=== PATIENT | male | born 1930 | race African-American/Black ===

== ENCOUNTER 2018-06-11 08:50 | Emergency (ER) | payer MEDICARE ==
--- NOTE | 2018-06-11 09:26 | CT ---
CT head without contrast: Multiple axial tomograms obtained through the head without IV enhancement. INDICATIONS: Trauma COMPARISON: None FINDINGS: There is moderate cortical atrophy. Moderately severe chronic ischemic white matter change. No evidence of intracranial mass, hemorrhage, edema, or infarct. Visualized sinuses and mastoids appear clear. Bony calvarium appears unremarkable. IMPRESSION: No acute finding
--- NOTE | 2018-06-11 09:40 | RAD ---
EXAM: Right elbow: 4 views INDICATIONS: Trauma COMPARISON: None. FINDINGS: There is a mildly displaced fracture of the distal humerus through the condyles. Distal fra gment shows anterior displacement. There is associated joint effusion. IMPRESSION: Displaced fracture distal humerus with associated joint effusion
== END 2018-06-11 10:24 | disposition home or self-care (01) ==
LOC: ERS 08:50
DX: S42.411A Displaced simple supracondylar fracture without intercondylar fracture of right humerus, initial encounter for closed fracture (principal); G30.9 Alzheimer's disease, unspecified; E78.5 Hyperlipidemia, unspecified; I11.0 Hypertensive heart disease with heart failure; I50.9 Heart failure, unspecified; W19.XXXA Unspecified fall, initial encounter
CPT/HCPCS: 24530; 70460

== ENCOUNTER 2018-06-19 18:04 | Emergency (ER) | payer MEDICARE ==
--- NOTE | 2018-06-19 19:34 | RAD ---
XR Elbow Rt 4 View STANDARD History: [Swelling.] Comparison: Radiograph June 11, 2018 Findings: Similar appearance of the transcondylar fracture. Large joint effusion. There is displaceme nt of the medial epicondyle medially. Impression: Similar appearance of the transcondylar fracture distal humerus.
== END 2018-06-19 20:26 | disposition home or self-care (01) ==
LOC: ERS 18:04
DX: M79.89 Other specified soft tissue disorders (principal); I11.0 Hypertensive heart disease with heart failure; I50.9 Heart failure, unspecified; E78.5 Hyperlipidemia, unspecified; Z79.899 Other long term (current) drug therapy; Z79.891 Long term (current) use of opiate analgesic; Z79.82 Long term (current) use of aspirin

== ENCOUNTER 2019-01-05 09:00 | Inpatient (IN) | payer MEDICARE ==
--- NOTE | 2019-01-05 09:57 | CT ---
CT BRAIN NONCONTRAST: DATE: 01/05/2019 HISTORY: 88-year-old male with altered mental status FINDINGS: There is no evidence of acute intra-axial or extra-axial hemorrhage. There is no midline shift or any other mass effect. There is no extra-axial fluid collection. There is no evidence of obstructive hydrocephalus. Calvarium is intact. There is diffuse brain parenchymal volume loss. There are low att enuation areas in the white matter. These are nonspecific, but in a patient of this age, they are probably chronic ischemic white matter changes due to microvascular atherosclerosis. IMPRESSION: 1) No acute intracranial findings. 2) involutional changes and chronic ischemic white matter changes.
--- NOTE | 2019-01-05 10:05 | RAD ---
PORTABLE CHEST 1 VIEW: Date: 01/05/19 Time: 0921 hours HISTORY: Weakness, dyspnea, chest pain. FINDINGS: The heart size is normal. The aorta is tortuous. There is prominence of the aortic knob. The possibil ity of an aneurysm cannot be excluded. A left-sided pacemaker device is present. The lungs are well e xpanded without focal areas of consolidation, pneumothoraces, or pleural effusions. IMPRESSION: 1. No acute process. 2. 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 Further evaluation with CT scan would be helpful. POS: TPC
[2019-01-05 10:30] LABS: #Eosinphils 0.1 thou/uL (0.0-0.7); #Lymphocytes 1.3 thou/uL (1.20-3.40); #Monocytes 0.5 thou/uL (0.11-0.59); #Neutrophils 4.9 thou/uL (1.40-6.50); %Basophils 0.1 % (0.0-1.0); %Eosinophils 0.9 % (0.0-10.0); %Lymphocytes 18.9 % (21.0-51.0); %Monocytes 7.5 % (0.0-10.0); %Neutrophils 72.6 % (42.0-75.0); Hemoglobin 11.8 g/dL (14.0-18.0); Mean Corpuscular HGB CONC 33.5 g/dL (32.0-36.0); Mean Corpuscular Hemoglobin 31.8 pg (27.0-31.0); Mean Corpuscular Volume 94.7 fL (78.0-98.0); Mean Platelet Volume 7.6 fL (7.4-10.4); Platelet Count 149 thou/uL (130-400); RBC Distribution Width 13.3 % (11.5-14.5); Red Blood Cell (RBC) Count 3.73 mill/uL (4.70-6.10); White Blood Cell (WBC) Count 6.7 thou/uL (4.8-10.8)
[2019-01-05 10:41] LABS: Base Excess-Venous -5.5 mmol/L (-2.0 to 3.0); Bicarbonate (HCO3v) 16.2 mmol/L (22.0-28.0); Calcium, Ionized 0.98 mmol/L (See Comments:); Chloride 114 mmol/L (98-107); Hemoglobin - Calc 12.7 g/dL (14.0-18.0); Potassium 5.4 mmol/L (3.5-5.1); Sodium 141 mmol/L (138-145); T. Carbon Dioxide 16.9 mmol/L (22.0-28.0); vO2 Saturation-calc 98.2 % (60.0-85.0)
[2019-01-05 10:48] LABS: ALT (SGPT) 22 U/L (8-55); AST (SGOT) 42 U/L (5-34); Albumin 3.7 g/dL (3.4-4.8); Alkaline Phosphatase 96 U/L (40-110); Anion Gap 13 mmol/L (10-20); BUN (Urea Nitrogen) 28 mg/dL (8.4-25.7); Bilirubin, Total 0.6 mg/dL (0.2-1.2); CK (CPK) 1994 U/L (30-200); Calc. Creatinine Clearance 0 mL/min (70-130); Carbon Dioxide 21 mmol/L (23-31); Chloride 111 mmol/L (98-107); Estimated GFR-MDRD 30; Globulin 3.4 g/dL (2.4-3.5); Glucose 99 mg/dL (83-110); Potassium 5.5 mmol/L (3.5-5.1); Protein, Total 7.1 g/dL (5.8-8.1); Sodium 139 mmol/L (136-145)
[2019-01-05 11:13] LABS: CKMB 14.2 ng/mL (0-6.6)
[2019-01-05 13:24] LABS: Bacteria/HPF None Seen HPF (None Seen); Bilirubin Negative (Negative); Blood, Urine 2+ (Negative); Clarity Clear (Clear); Glucose, Urine (Dipstick) Normal (Negative); Leukocyte Negative Leu/uL (Negative); Nitrite Negative (Negative); Protein, Urine (Dipstick) Negative (Neg-Trace); RBC/HPF 0-3 HPF (0-3); Squamous Epithelial 0-3 HPF (0-3); Urobilinogen Normal mg/dL (Less than 2); WBC/HPF 0-3 HPF (0-3)
[2019-01-05 16:07] LABS: Troponin I 0.029 ng/mL (< 0.028)
--- NOTE | 2019-01-05 16:32 | CT ---
CT thorax noncontrast CT abdomen noncontrast CT pelvis noncontrast: DATE: 01/05/2019 HISTORY: 88-year-old male with aortic aneurysm, chest pain, and dyspnea. TECHNIQUE: Due to poor GFR, no IV contrast was given. FINDINGS: Limitations of evaluation without IV contrast, especially in a thin individual with little visceral f at. Cannot evaluate for aortic dissection without IV contrast. Atherosclerotic calcification, tortuosity, and mild ectasia of thoracic aorta without aneurysm. Ather osclerotic calcification of abdominal aorta and common iliac arteries, external iliac arteries, and internal iliac arteries. No abdominal aortic aneurysm. Atherosclerosis,, ectasia, and tortuosity of brachiocephalic artery. Fullness at region of proximal a spects of right subclavian artery and right common carotid artery. It is assumed that this is all tortuosity of vessels rather than neoplastic tumor mass, but the evaluation is limited without IV con trast in this particular location. No pneumothorax or pleural effusion. No consolidation or pulmonary edema. No suspicious pulmonary mas s. Calcification along left main, LAD, LCx, and RCA. Left subclavian pacemaker. Multiple mildly enlarged mediastinal lymph nodes, nonspecific. Trachea and bilateral mainstem bronchi are patent and clear. No compression fracture of thoracic or lumbar spine. Osteolytic lesion of L3 vertebral body, large, w ith sclerotic rim, uncertain etiology but probably benign. Small calcified gallstones at dependent portion of gallbladder proximal body near neck. No pericholec ystic edema. No hydronephrosis. No renal, ureteral, or bladder calculus. Within the limitations of a noncontrast scan, no obvious major pathology identified involving liver, kidneys, adrenals, pancrea s, spleen, or urinary bladder. No small bowel dilation. No ascites. IMPRESSION: 1. Tortuosity and atherosclerosis of of thoracic aorta. No aneurysm. 2. Cholelithiasis. 3. Pacemaker. 4. Coronary atherosclerosis due to calcified coronary lesion.
[2019-01-05] MEDS ORDERED: Acetaminophen 325 MG TAB PO PRN (16:58)
[2019-01-05] MEDS ORDERED: Senokot S 8.6-50 MG TAB PO PRN (16:58)
[2019-01-05] MEDS ORDERED: Calcium Gluconate 4.6 MEQ in Sodium Chloride 0.9% 100 ML IVPB SCH (17:30)
[2019-01-05] MEDS ORDERED: Lactated Ringer's 1,000 ML IV SCH (17:30)
[2019-01-05 18:03] LABS: Anion Gap 11 mmol/L (10-20); BUN (Urea Nitrogen) 23 mg/dL (8.4-25.7); Calc. Creatinine Clearance 0 mL/min (70-130); Calcium 8.6 mg/dL (7.8-10.44); Carbon Dioxide 20 mmol/L (23-31); Chloride 113 mmol/L (98-107); Estimated GFR-MDRD 40; Glucose 86 mg/dL (83-110); Potassium 5.3 mmol/L (3.5-5.1); Sodium 139 mmol/L (136-145)
--- NOTE | 2019-01-05 20:06 | CON ---
DATE OF CONSULTATION: REASON FOR CONSULTATION: Hyperkalemia. HISTORY OF PRESENT ILLNESS: This is a very pleasant 88-year-old gentleman, who presented to the hospital with chest pain and dyspnea, was noted to have a creatinine of 2.4 and potassium of 5.5. The prior baseline in August was 1.3, had peaked to 1.5. The patient denies any nausea or vomiting, is being admitted for chest pain. PAST MEDICAL HISTORY: congestive heart failure, hyperlipidemia, hypertension, and Alzheimer's. SOCIAL HISTORY: No alcohol or drug use. FAMILY HISTORY: Negative for ESRD. ALLERGIES: REVIEWED. HOME MEDICATIONS: List reviewed. HOSPITAL MEDICATIONS: Reviewed. REVIEW OF SYSTEMS: A 15-point review of system was performed, negative except for positives note above. GENERAL: HEAD: NECK: No swelling or lumps. NOSE: No epistaxis or discharge. EYES: No diplopia or pain. RESPIRATORY: CARDIOVASCULAR: GASTROINTESTINAL: /[employer]GER: MUSCULOSKELETAL: No joint pain. NEUROPSYCHIATRIC SYSTEMS: No suicidal ideation. No ideation. SKIN: Denies any rash or ulcer. CONSTITUTIONAL: No fever or chills. PHYSICAL EXAMINATION: GENERAL: The patient is awake and alert. VITAL SIGNS: Pulse 75, breathing 16, and blood pressure 130/70. GENERAL APPEARANCE AND MENTAL STATUS: Fair. HEAD/NECK: Normocephalic. Atraumatic. EYES: EOMI. No deformity. EARS: Clear. No ulcers. NOSE: Intact. No lesions. MOUTH: Clear. No discharge. THROAT: Clear. No exudate. LUNGS: Clear. No crackles. CARDIAC: S1, S2. No rub. ABDOMEN: Benign. Bowel sounds positive. GENITALIA/RECTUM: Moreno absent. BACK/EXTREMITIES: Edema 0+. NEUROLOGICAL: Alert and motor intact. SKIN: LYMPHATICS: LABORATORY DATA: Reviewed. ASSESSMENT AND PLAN: 1. Acute kidney injury with chronic kidney disease, most likely due to cardiorenal syndrome. Continue gentle hydration. 2. Hyperkalemia due to renal failure. We will consider Lasix. The patient should be a poor candidate for dialysis. 3. Hypertension, stable. 4. Medication based on GFR appropriate. Overall prognosis is poor. Job ID: [id number]
[2019-01-05 20:13] LABS: Troponin I 0.067 ng/mL (< 0.028)
[2019-01-05] MEDS ORDERED: Sodium Bicarbonate Tab 325 MG TAB PO SCH (20:15)
[2019-01-05 22:09] LABS: Troponin I 0.058 ng/mL (< 0.028)
--- NOTE | 2019-01-06 00:16 | HP ---
CHIEF COMPLAINT: Change in mental status. HISTORY OF PRESENT ILLNESS: The patient is an 88-year-old male with a history of severe dementia who was brought into the hospital by family for inability to walk. The patient's family member, who is at the bedside states that the patient normally is able to ambulate and feed himself; however today he was unable to get himself up and walk. He denies any fevers, chills, any nausea, vomiting or diarrhea. He does have history of fall about couple months ago where she states that he kind of injured his right arm. However, recently, no falls per family member. PAST MEDICAL HISTORY: 1. He has a history of CHF, unknown EF. I do not have a previous echocardiogram. 2. Hyperlipidemia. 3. Alzheimer's dementia. 4. Hypertension. PAST SURGICAL HISTORY: No history of any surgeries. This is again per patient's daughter. SOCIAL HISTORY: He denies any alcohol use, drug use, or smoking history. This is again per family and he lives at home with family. Code status is currently undecided. REVIEW OF SYSTEMS: Unable to obtain. ALLERGIES: NO KNOWN DRUG ALLERGIES. MEDICATIONS: 1. Aspirin 81 mg daily. 2. Entresto 1 tab p.o. daily that is 26 mg one p.o. b.i.d. 3. Atorvastatin 20 mg daily. 4. Carvedilol 3.125 p.o. b.i.d. 5. Flomax 0.4 mg 1 p.o. daily. PHYSICAL EXAMINATION: VITAL SIGNS: Are as of the following, temperature of 98.4, 71, 143/92, 99% on room air. GENERAL: He is awake. HEENT: His eyes are closed, oriented only to self. HEENT: Normocephalic, atraumatic. No lymphadenopathy noted. The patient's eyes are closed. He does have significant mild swelling bilaterally underneath the eyes. His mouth appears very dry. The patient does not have any teeth. CV: S1 and S2 present. No murmurs, rubs, gallops. LUNGS: Clear to auscultation. No rhonchi or wheezes noted. ABDOMEN: Soft. Bowel sounds are present x2. No pain upon pushing on the abdomen. EXTREMITIES: No edema. Pedal pulses are present x2. NEUROVASCULAR: The patient is moving all 4 extremities. However, is unable to tell me where he is or follow any commands. The patient at baseline according to family, walks, ambulates, but he is unable to recall anybody's names. SKIN: No cuts, lesions or bruises noted. LABORATORY RESULTS: His WBC is 6.7, hemoglobin of 11.8, hematocrit of 35.4, his platelets are 149. Chemistry: Sodium of 141, potassium of 5.4, BUN of 28, creatinine of 2.45. His lactic acid is 1.5. His troponin is 0.029. His CK is 1994. His TSH is 1.33. His urine just has 2+ blood in it. He did have initially a chest x-ray that possibly indicated a possible aneurysm in the thoracic area; however due to contrast, we were unable to do further testing. We did do a CT of abdomen and pelvis without contrast, which indicated torturous and atherosclerotic thoracic aorta. No aneurysm was noted. Again, we could not see dissection, cholelithiasis, pacemaker and coronary artery disease due to calcified coronary lesion. He did have a brain CT, which was negative for any acute abnormalities, had involuntary changes and chronic ischemic white matter changes. ASSESSMENT AND PLAN: The patient is an 88-year-old male who presents to the hospital with altered mental status. 1. Altered mental status. Unclear etiology at this point, we will start him on some hydration. We will also prophylactically start him on some ceftriaxone. Blood cultures have been done. Urine culture has been sent. His previous urine culture has indicated enterococcus and Proteus. However, at this time, his urine looks pretty clear. 2. Dehydration. The patient's mucous membranes look very dehydrated. He also has an elevated creatinine. We will start him on some gentle hydration. Continue to monitor. 3. Acute kidney injury. The patient's baseline creatinine is normally at 1.2 or 1.3, it is 2.45 today. We will continue to monitor. We will also bladder scan him and continue IV hydration. 4. Hyperkalemia. The patient's potassium is 5.4. We will recheck a potassium. If the potassium is high, we will consider starting him on calcium gluconate and albuterol. 5. He does have some non-anion gap metabolic acidosis. This could be secondary to his underlying elevated creatinine. I will continue to monitor. 6. Elevated CK, possible rhabdomyolysis. We will start him on some IV hydration and continue to monitor. 7. Deep venous thrombosis prophylaxis. We will put the patient on SCDs and heparin. 8. I have talked to patient about code status. However, they wanted everything to be done. I will get palliative Care on board to talk with the patient's family. Job ID: [id number]
[2019-01-06] MEDS: Tamsulosin HCl 0.4 MG CAP PO SCH ×2 (00:18→20:49)
[2019-01-06] MEDS: cefTRIAXone\\ROCEPHIN 1 GM in Sodium Chloride 0.9% 100 ML IVPB SCH ×2 (00:27→16:30)
[2019-01-06] MEDS: Sodium Chloride 0.9% 1,000 ML IV SCH ×2 (00:27→10:16)
[2019-01-06] MEDS: Heparin 5,000 UNITS/ML VIAL SC SCH ×4 (00:27→20:50)
[2019-01-06] MEDS ORDERED: Calcium Gluconate 4.6 MEQ in Sodium Chloride 0.9% 100 ML IVPB SCH (00:45)
[2019-01-06 02:21] LABS: Calcium 8.6 mg/dL (7.8-10.44); Chloride 118 mmol/L (98-107); Potassium 4.7 mmol/L (3.5-5.1); Sodium 142 mmol/L (136-145)
[2019-01-06 02:22] LABS: Glucose 87 mg/dL (83-110)
[2019-01-06 02:23] LABS: Anion Gap 11 mmol/L (10-20); Carbon Dioxide 18 mmol/L (23-31)
[2019-01-06 02:25] LABS: Calc. Creatinine Clearance 0 mL/min (70-130); Estimated GFR-MDRD 42
[2019-01-06 02:26] LABS: BUN (Urea Nitrogen) 22 mg/dL (8.4-25.7)
[2019-01-06 04:25] VITALS: BMI 18.6
[2019-01-06 05:40] LABS: Anion Gap 13 mmol/L (10-20); BUN (Urea Nitrogen) 19 mg/dL (8.4-25.7); Calc. Creatinine Clearance 23 mL/min (70-130); Calcium 8.7 mg/dL (7.8-10.44); Carbon Dioxide 19 mmol/L (23-31); Chloride 114 mmol/L (98-107); Estimated GFR-MDRD 48; Glucose 83 mg/dL (83-110); Potassium 4.4 mmol/L (3.5-5.1); Sodium 142 mmol/L (136-145)
[2019-01-06] MEDS ORDERED: Prevnar 13-Val Conj/PF 0.5 ML SYRINGE IM ONE (08:30)
[2019-01-06] MEDS ORDERED: FLU VACC TS2019-20(65YR UP)/PF 180 MCG/0.5 ML SYRINGE IM ONE (08:30)
[2019-01-06] MEDS ORDERED: Aspirin Chewable 81 MG TAB PO SCH (09:00)
[2019-01-06 10:00] LABS: #Eosinphils 0.1 thou/uL (0.0-0.7); #Lymphocytes 1.5 thou/uL (1.20-3.40); #Monocytes 0.4 thou/uL (0.11-0.59); #Neutrophils 4.1 thou/uL (1.40-6.50); %Basophils 0.5 % (0.0-1.0); %Eosinophils 2.1 % (0.0-10.0); %Lymphocytes 23.9 % (21.0-51.0); %Monocytes 6.8 % (0.0-10.0); %Neutrophils 66.7 % (42.0-75.0); Hemoglobin 11.4 g/dL (14.0-18.0); Mean Corpuscular HGB CONC 32.9 g/dL (32.0-36.0); Mean Corpuscular Hemoglobin 31.4 pg (27.0-31.0); Mean Corpuscular Volume 95.4 fL (78.0-98.0); Mean Platelet Volume 8.1 fL (7.4-10.4); Platelet Count 133 thou/uL (130-400); RBC Distribution Width 13.2 % (11.5-14.5); Red Blood Cell (RBC) Count 3.63 mill/uL (4.70-6.10); White Blood Cell (WBC) Count 6.1 thou/uL (4.8-10.8)
[2019-01-06] MEDS: Aspirin 81 mg Enteric Coated Tablet PO SCH (10:16)
[2019-01-06] MEDS: Ferrous Sulfate 325 MG TAB PO SCH (10:16)
[2019-01-06] MEDS: Carvedilol 3.125 MG TAB PO SCH ×2 (10:16→16:31)
--- NOTE | 2019-01-06 14:34 | PRG ---
DATE OF SERVICE: 01/06/2019 SUBJECTIVE: An 88-year-old gentleman, being seen for acute kidney injury. The patient denied nausea, vomiting, or chest pain. OBJECTIVE: CONSTITUTIONAL: The patient is awake, alert. VITAL SIGNS: Pulse 72, breathing 16, blood pressure 136/87. GENERAL APPEARANCE AND MENTAL STATUS: Fair. HEAD/NECK: Normocephalic. Atraumatic. EYES: EOMI. No deformity. EARS: Clear. No ulcers. NOSE: Intact. No lesions. MOUTH: Clear. No discharge. THROAT: Clear. No exudate. LUNGS: Clear. No crackles. CARDIAC: S1, S2. No rub. ABDOMEN: Benign. Bowel sounds positive. GENITALIA/RECTUM: Moreno absent. BACK/EXTREMITIES: Edema 0+. NEUROLOGICAL: Alert and motor intact. SKIN: LYMPHATICS: LABORATORY DATA: Hemoglobin 11.4, creatinine 1.6. ASSESSMENT AND PLAN: 1. Acute kidney injury, improved. 2. Hypertension, stable. 3. Anemia, stable. 4. Medication based on GFR appropriate. Acute kidney injury, improving. No indication for dialysis. I will sign off on this patient. Please reconsult as needed. Job ID: [id number]
--- NOTE | 2019-01-06 14:54 | PDOC.HOSPP ---
- Subjective Encounter Date: 01/06/19 Encounter Time: 09:00 Subjective: pt up in bed awake and oriented to self - Objective Vital Signs & Weight: Vital Signs (12 hours) Temp Pulse Resp BP Pulse Ox 01/06/19 08:00 95 01/06/19 07:45 98.3 F 72 18 136/87 95 01/06/19 04:00 98.0 F 86 18 159/79 H 100 Weight Admit Weight 115 lb 12.8 oz Weight 115 lb 12.8 oz I&O: 01/05/19 01/06/19 01/07/19 06:59 06:59 06:59 Intake Total 620 Output Total 200 Balance 420 Result Diagrams: 01/06/19 09:45 01/06/19 05:05 Hospitalist ROS - Review of Systems Other: unable to obtain - Medication Medications: Active Medications Generic Name Dose Route Start Last Admin Trade Name Freq PRN Reason Stop Dose Admin Aspirin 81 mg 01/06/19 09:00 01/06/19 10:16 Ecotrin PO 81 mg DAILY GENEVA Administration Carvedilol 3.125 mg 01/06/19 08:00 01/06/19 10:16 Coreg PO 3.125 mg BID-WM GENEVA Administration Ferrous Sulfate 325 mg 01/06/19 09:00 01/06/19 10:16 Feosol PO 325 mg DAILY GENEVA Administration Heparin Sodium (Porcine) 5,000 units 01/05/19 21:00 01/06/19 10:17 Heparin SC 5,000 units TID GENEVA Administration Ceftriaxone Sodium 1 gm/ 100 mls @ 200 mls/hr 01/05/19 17:30 01/06/19 00:27 Sodium Chloride IVPB 100 mls Q24HR GENEVA Administration Sodium Chloride 1,000 mls @ 70 mls/hr 01/05/19 17:30 01/06/19 10:16 Normal Saline 0.9% IV Not Given .[id number] GENEVA Sacubitril/Valsartan 1 tab 01/06/19 09:00 01/06/19 10:27 Entresto 24 Mg-26 Mg Tablet PO 1 tab BID GENEVA Administration Tamsulosin HCl 0.4 mg 01/05/19 21:00 01/06/19 00:18 Flomax PO Not Given HS GENEVA - Exam Neck: negative: supple, symmetric, no JVD, no thyromegaly, no lymphadenopathy, no carotid bruit, JVD Heart: negative: RRR, no murmur, no gallops, no rubs, normal peripheral pulses, irregular, diminshed peripheral pulses, murmur present, II/IV, III/IV Respiratory: negative: CTAB, no wheezes, no rales, no ronchi, normal chest expansion, no tachypnea, normal percussion, rales, rhonchi, tachypneic, wheezes Hosp A/P (1) Acute metabolic encephalopathy Code(s): G93.41 - METABOLIC ENCEPHALOPATHY Status: Acute (2) JABARI (acute kidney injury) Code(s): N17.9 - ACUTE KIDNEY FAILURE, UNSPECIFIED Status: Acute (3) Rhabdomyolysis Code(s): M62.82 - RHABDOMYOLYSIS Status: Acute (4) Dehydration Code(s): E86.0 - DEHYDRATION Status: Acute - Plan will stop fluids if he is eating. He does have a hx of HF. palliative consulted for code status. will get PT to see pt.
[2019-01-06] MEDS: Atorvastatin Calcium 40 MG TAB PO SCH (20:49)
[2019-01-07] MEDS: Haloperidol Lactate 5 MG/ML VIAL SLOW IVP PRN (01:21)
[2019-01-07 06:21] LABS: Anion Gap 12 mmol/L (10-20); BUN (Urea Nitrogen) 15 mg/dL (8.4-25.7); CK (CPK) 3262 U/L (30-200); Calc. Creatinine Clearance 30 mL/min (70-130); Calcium 8.5 mg/dL (7.8-10.44); Carbon Dioxide 17 mmol/L (23-31); Chloride 111 mmol/L (98-107); Estimated GFR-MDRD 67; Glucose 82 mg/dL (83-110); Potassium 4.2 mmol/L (3.5-5.1); Sodium 136 mmol/L (136-145)
[2019-01-07] MEDS ORDERED: Sodium Chloride 0.9% 1,000 ML IV SCH (07:30)
[2019-01-07] MEDS ORDERED: Carvedilol 6.25 MG TAB PO SCH (08:30)
[2019-01-07] MEDS: Heparin 5,000 UNITS/ML VIAL SC SCH ×3 (08:47→20:27)
[2019-01-07] MEDS: Amlodipine 5 MG TAB PO SCH (12:33)
[2019-01-07] MEDS: Aspirin 81 mg Enteric Coated Tablet PO SCH (12:34)
[2019-01-07] MEDS: Ferrous Sulfate 325 MG TAB PO SCH (12:34)
--- NOTE | 2019-01-07 14:29 | PRG ---
DATE OF SERVICE: 01/07/2019 SUBJECTIVE: An 88-year-old gentleman being seen for acute kidney injury. The patient denied any nausea, vomiting, or chest pain. OBJECTIVE: CONSTITUTIONAL: On examination, the patient is awake and alert. VITAL SIGNS: Afebrile, pulse 75, breathing 16, and blood pressure 130/60. GENERAL APPEARANCE AND MENTAL STATUS: Fair. HEAD/NECK: Normocephalic. Atraumatic. EYES: EOMI. No deformity. EARS: Clear. No ulcers. NOSE: Intact. No lesions. MOUTH: Clear. No discharge. THROAT: Clear. No exudate. LUNGS: Clear. No crackles. CARDIAC: S1, S2. No rub. ABDOMEN: Benign. Bowel sounds positive. GENITALIA/RECTUM: Moreno absent. BACK/EXTREMITIES: Edema 0+. NEUROLOGICAL: Alert and motor intact. SKIN: LYMPHATICS: LABORATORY DATA: Reviewed. ASSESSMENT AND PLAN: 1. Acute kidney injury, stable. 2. Hypertension, stable. 3. Anemia, stable. 4. Metabolic acidosis. Continue hydration and protein intake. We will sign off on this patient. Please reconsult as needed. Job ID: [id number]
[2019-01-07] MEDS: cefTRIAXone\\ROCEPHIN 1 GM in Sodium Chloride 0.9% 100 ML IVPB SCH (16:42)
[2019-01-07] MEDS: Carvedilol 6.25 MG TAB PO SCH (18:10)
[2019-01-07 20:08] LABS: Anion Gap 11 mmol/L (10-20); BUN (Urea Nitrogen) 13 mg/dL (8.4-25.7); Calc. Creatinine Clearance 35 mL/min (70-130); Calcium 7.9 mg/dL (7.8-10.44); Carbon Dioxide 20 mmol/L (23-31); Chloride 112 mmol/L (98-107); Estimated GFR-MDRD 81; Glucose 99 mg/dL (83-110); Potassium 3.8 mmol/L (3.5-5.1); Sodium 139 mmol/L (136-145)
[2019-01-07] MEDS: Tamsulosin HCl 0.4 MG CAP PO SCH (20:27)
--- NOTE | 2019-01-08 06:57 | PDOC.HOSPP ---
- Subjective Encounter Date: 01/07/19 Encounter Time: 10:00 Subjective: pt asleep, did not sleep at night - Objective Vital Signs & Weight: Vital Signs (12 hours) Temp Pulse Resp BP Pulse Ox 01/08/19 04:42 97.5 F L 59 L 16 135/65 98 01/07/19 20:00 97.6 F 61 16 122/68 99 Weight Admit Weight 115 lb 12.8 oz Weight 115 lb 12.8 oz I&O: 01/06/19 01/07/19 01/08/19 06:59 06:59 06:59 Intake Total 966 303 1920 Output Total 200 Balance 268 295 2395 Result Diagrams: 01/06/19 09:45 01/07/19 19:41 Hospitalist ROS - Review of Systems Other: unable to obtain - Medication Medications: Active Medications Generic Name Dose Route Start Last Admin Trade Name Freq PRN Reason Stop Dose Admin Amlodipine Besylate 5 mg 01/07/19 09:00 01/07/19 12:33 Norvasc PO 5 mg DAILY GENEVA Administration Aspirin 81 mg 01/06/19 09:00 01/07/19 12:34 Ecotrin PO 81 mg DAILY GENEVA Administration Atorvastatin Calcium 40 mg 01/06/19 21:00 01/06/19 20:49 Lipitor PO 40 mg HS GENEVA Administration Carvedilol 12.5 mg 01/07/19 17:00 01/07/19 18:10 Coreg PO 12.5 mg BID-WM GENEVA Administration Ferrous Sulfate 325 mg 01/06/19 09:00 01/07/19 12:34 Feosol PO 325 mg DAILY GENEVA Administration Haloperidol Lactate 5 mg 01/05/19 17:20 01/07/19 01:21 Haldol SLOW IVP 5 mg Q8H PRN Administration Agitation Heparin Sodium (Porcine) 5,000 units 01/05/19 21:00 01/07/19 20:27 Heparin SC 5,000 units TID GENEVA Administration Ceftriaxone Sodium 1 gm/ 100 mls @ 200 mls/hr 01/05/19 17:30 01/07/19 16:42 Sodium Chloride IVPB 100 mls Q24HR GENEVA Administration Sacubitril/Valsartan 1 tab 01/06/19 09:00 01/07/19 20:27 Entresto 24 Mg-26 Mg Tablet PO 1 tab BID GENEVA Administration Tamsulosin HCl 0.4 mg 01/05/19 21:00 01/07/19 20:27 Flomax PO 0.4 mg HS GENEVA Administration - Exam Neck: negative: supple, symmetric, no JVD, no thyromegaly, no lymphadenopathy, no carotid bruit, JVD Heart: negative: RRR, no murmur, no gallops, no rubs, normal peripheral pulses, irregular, diminshed peripheral pulses, murmur present, II/IV, III/IV Respiratory: negative: CTAB, no wheezes, no rales, no ronchi, normal chest expansion, no tachypnea, normal percussion, rales, rhonchi, tachypneic, wheezes Hosp A/P (1) Acute metabolic encephalopathy Code(s): G93.41 - METABOLIC ENCEPHALOPATHY Status: Acute (2) JABARI (acute kidney injury) Code(s): N17.9 - ACUTE KIDNEY FAILURE, UNSPECIFIED Status: Acute (3) Rhabdomyolysis Code(s): M62.82 - RHABDOMYOLYSIS Status: Acute (4) Dehydration Code(s): E86.0 - DEHYDRATION Status: Acute (5) Dementia Code(s): F03.90 - UNSPECIFIED DEMENTIA WITHOUT BEHAVIORAL DISTURBANCE Status: Acute - Plan will stop fluids if he is eating. He does have a hx of HF. palliative consulted for code status. will get PT to see pt. 01/07 pt's ck high will continue iv fluids and if ck improves possible discharge in am. will hold statin.
[2019-01-08 07:24] LABS: Anion Gap 8 mmol/L (10-20); BUN (Urea Nitrogen) 11 mg/dL (8.4-25.7); CK (CPK) 1346 U/L (30-200); Calc. Creatinine Clearance 39 mL/min (70-130); Calcium 8.1 mg/dL (7.8-10.44); Carbon Dioxide 22 mmol/L (23-31); Chloride 111 mmol/L (98-107); Estimated GFR-MDRD 90; Glucose 79 mg/dL (83-110); Sodium 137 mmol/L (136-145)
[2019-01-08] MEDS: Aspirin 81 mg Enteric Coated Tablet PO SCH (09:04)
[2019-01-08] MEDS: Heparin 5,000 UNITS/ML VIAL SC SCH ×3 (09:05→20:41)
[2019-01-08] MEDS: Amlodipine 5 MG TAB PO SCH (09:05)
[2019-01-08] MEDS: Carvedilol 6.25 MG TAB PO SCH ×2 (09:05→17:04)
[2019-01-08] MEDS: Ferrous Sulfate 325 MG TAB PO SCH (09:05)
--- NOTE | 2019-01-08 19:21 | PDOC.HOSPP ---
- Subjective Encounter Date: 01/08/19 Encounter Time: 10:15 Subjective: pt up in bed appears well - Objective Vital Signs & Weight: Vital Signs (12 hours) Temp Pulse Resp BP BP Pulse Ox 01/08/19 17:04 118/61 01/08/19 16:00 97.5 F L 63 18 119/61 97 01/08/19 09:05 60 130/60 01/08/19 07:52 97.2 F L 60 16 130/60 99 Weight Admit Weight 115 lb 12.8 oz Weight 115 lb 12.8 oz I&O: 01/07/19 01/08/19 01/09/19 06:59 06:59 06:59 Intake Total 460 1979 Balance 460 1979 Result Diagrams: 01/06/19 09:45 01/08/19 06:15 Hospitalist ROS - Review of Systems Other: unable to obtain - Medication Medications: Active Medications Generic Name Dose Route Start Last Admin Trade Name Freq PRN Reason Stop Dose Admin Amlodipine Besylate 5 mg 01/07/19 09:00 01/08/19 09:05 Norvasc PO 5 mg DAILY GENEVA Administration Aspirin 81 mg 01/06/19 09:00 01/08/19 09:04 Ecotrin PO 81 mg DAILY GENEVA Administration Atorvastatin Calcium 40 mg 01/06/19 21:00 01/06/19 20:49 Lipitor PO 40 mg HS GENEVA Administration Carvedilol 12.5 mg 01/07/19 17:00 01/08/19 17:04 Coreg PO 12.5 mg BID-WM GENEVA Administration Ferrous Sulfate 325 mg 01/06/19 09:00 01/08/19 09:05 Feosol PO 325 mg DAILY GENEVA Administration Haloperidol Lactate 5 mg 01/05/19 17:20 01/07/19 01:21 Haldol SLOW IVP 5 mg Q8H PRN Administration Agitation Heparin Sodium (Porcine) 5,000 units 01/05/19 21:00 01/08/19 15:40 Heparin SC 5,000 units TID GENEVA Administration Sacubitril/Valsartan 1 tab 01/06/19 09:00 01/08/19 09:05 Entresto 24 Mg-26 Mg Tablet PO 1 tab BID GENEVA Administration Tamsulosin HCl 0.4 mg 01/05/19 21:00 01/07/19 20:27 Flomax PO 0.4 mg HS GENEVA Administration - Exam Heart: negative: RRR, no murmur, no gallops, no rubs, normal peripheral pulses, irregular, diminshed peripheral pulses, murmur present, II/IV, III/IV Respiratory: negative: CTAB, no wheezes, no rales, no ronchi, normal chest expansion, no tachypnea, normal percussion, rales, rhonchi, tachypneic, wheezes Gastrointestinal: negative: soft, non-tender, non-distended, normal bowel sounds , no palpable masses, no hepatomegaly, no splenomegaly, no bruit, no guarding, no rigidity, tender to palpation, distended, diminished bowl sounds, voluntary guarding Hosp A/P (1) Acute metabolic encephalopathy Code(s): G93.41 - METABOLIC ENCEPHALOPATHY Status: Acute (2) JABARI (acute kidney injury) Code(s): N17.9 - ACUTE KIDNEY FAILURE, UNSPECIFIED Status: Acute (3) Rhabdomyolysis Code(s): M62.82 - RHABDOMYOLYSIS Status: Acute (4) Dehydration Code(s): E86.0 - DEHYDRATION Status: Acute (5) Dementia Code(s): F03.90 - UNSPECIFIED DEMENTIA WITHOUT BEHAVIORAL DISTURBANCE Status: Acute - Plan will stop fluids if he is eating. He does have a hx of HF. palliative consulted for code status. will get PT to see pt. 01/07 pt's ck high will continue iv fluids and if ck improves possible discharge in am. will hold statin. 01/08 will monitor for one more day and will discharge in am.
[2019-01-08] MEDS: Tamsulosin HCl 0.4 MG CAP PO SCH (20:40)
[2019-01-08] MEDS: Atorvastatin Calcium 40 MG TAB PO SCH (20:40)
[2019-01-08] MEDS: Haloperidol Lactate 5 MG/ML VIAL SLOW IVP PRN (21:13)
[2019-01-09 06:11] LABS: ALT (SGPT) 35 U/L (8-55); AST (SGOT) 62 U/L (5-34); Albumin 2.7 g/dL (3.4-4.8); Alkaline Phosphatase 68 U/L (40-110); Bilirubin, Direct 0.2 mg/dL (0.1-0.3); Bilirubin, Total 0.4 mg/dL (0.2-1.2); Protein, Total 5.6 g/dL (5.8-8.1)
[2019-01-09] MEDS: Aspirin 81 mg Enteric Coated Tablet PO SCH (08:13)
[2019-01-09] MEDS: Amlodipine 5 MG TAB PO SCH (08:13)
[2019-01-09] MEDS: Carvedilol 6.25 MG TAB PO SCH (08:13)
[2019-01-09] MEDS: Ferrous Sulfate 325 MG TAB PO SCH (08:13)
[2019-01-09] MEDS: Heparin 5,000 UNITS/ML VIAL SC SCH (08:13)
[2019-01-09 12:34] VITALS: BP 130/66; TEMP 97.4
--- NOTE | 2019-01-10 01:39 | DIS ---
DATE OF ADMISSION: 01/05/2019 DATE OF DISCHARGE: 01/09/2019 DISCHARGE DIAGNOSES: As of the followin. Acute metabolic encephalopathy. 2. Acute kidney injury, resolved. 3. Rhabdomyolysis, resolved. 4. Dehydration. 5. Dementia. HOSPITAL COURSE: The patient is an 88-year-old male who initially presented to the hospital with worsening confusion, also inability to walk. He was initially admitted, was resuscitated with IV fluids. His creatinine initially was 1.83. His CK initially was 1992, then it worsened to 3262. The patient at this time was started on IV hydration and his CK improved to 1346. His statin was discontinued. The patient was more awake and has been ambulating and was at baseline per patient's family. His urine was checked and it was negative. His chest x-ray also did not indicate any acute abnormalities. He did have a CT chest, abdomen, pelvis due to the x-ray findings of possible aneurysm. There was not a dissection protocol given his acute kidney injury. However, he does have cholelithiasis. He also has coronary atherosclerosis due to calcified coronary lesion and has torturous and atherosclerotic thoracic aorta. No aneurysm was noted. This was conveyed to the patient's family. The patient had a CT brain also which just had some involuntary changes and chronic ischemic white matter changes. No acute abnormalities were noted. The patient improved. He was discharged home. We did consult Palliative Care for possible code status, but I have encouraged the patient's family to discuss amongst themselves about the patient's code status. His home medications will be iron 65 mg daily, tamsulosin 1 tab daily, Entresto 1 p.o. b.i.d., Coreg 3.125 p.o. b.i.d., aspirin 81 mg daily and also I have held his atorvastatin. PHYSICAL EXAMINATION: VITAL SIGNS: Temperature of 97.4, 62, 16, 100% on room air, 130/66. GENERAL: He is awake, alert, and oriented x3. Does not appear in distress. CV: S1, S2 present. No murmurs, rubs, or gallops. ABDOMEN: Soft and nontender. Bowel sounds are present x2. DISPOSITION: Again he will be discharged home and follow up with his primary care doctor. Job ID: [id number]
== END 2019-01-09 13:30 | disposition home or self-care (01) | DRG 682 ==
LOC: ERS 09:00 → 2NO 21:19 → T4-A 01-06 15:13
PROVIDERS: ADMIT Internal Medicine; ATTEND Internal Medicine
DX: N17.9 Acute kidney failure, unspecified (principal); G93.41 Metabolic encephalopathy; I13.0 Hypertensive heart and chronic kidney disease with heart failure and stage 1 through stage 4 chronic kidney disease, or unspecified chronic kidney disease; E87.2 Acidosis; M62.82 Rhabdomyolysis; E78.5 Hyperlipidemia, unspecified; I50.9 Heart failure, unspecified; E86.0 Dehydration; N18.9 Chronic kidney disease, unspecified; Z79.82 Long term (current) use of aspirin; G30.9 Alzheimer's disease, unspecified; F02.80 Dementia in other diseases classified elsewhere, unspecified severity, without behavioral disturbance, psychotic disturbance, mood disturbance, and anxiety; E87.5 Hyperkalemia; I25.10 Atherosclerotic heart disease of native coronary artery without angina pectoris
CPT/HCPCS: 36415; 70450; 71045; 71250; 74177; 80048; 80053; 80076; 81003; 81015; 82140; 82330; 82550; 82553; 82803; 83605; 84443; 84484; 85025; 90471; 90662; 90670; 93005; G0008; G0009; J0696; J1630; J1644; J3490

== ENCOUNTER 2019-01-23 09:28 | Emergency (ER) | payer MEDICARE ==
--- NOTE | 2019-01-23 10:20 | RAD ---
Exam: Chest one view HISTORY:Syncope. Comparison: 01/05/2019 FINDINGS: Cardiac silhouette: Normal Aorta: Atherosclerosis of the aortic knob Pacemaker: Stable left-sided transvenous pacemaker Pulmonary vessels: Normal Costophrenic angles: Clear LUNGS: No masses or consolidation. Pneumothorax: None Osseous abnormalities: None IMPRESSION: 1. No acute cardiopulmonary process 2. Atherosclerosis.
[2019-01-23 10:30] LABS: ALT (SGPT) 19 U/L (8-55); AST (SGOT) 19 U/L (5-34); Albumin 3.6 g/dL (3.4-4.8); Alkaline Phosphatase 76 U/L (40-110); Anion Gap 12 mmol/L (10-20); BUN (Urea Nitrogen) 20 mg/dL (8.4-25.7); Bilirubin, Total 0.9 mg/dL (0.2-1.2); Calc. Creatinine Clearance 0 mL/min (70-130); Calcium 9.1 mg/dL (7.8-10.44); Carbon Dioxide 25 mmol/L (23-31); Chloride 105 mmol/L (98-107); Estimated GFR-MDRD 61; Globulin 3.4 g/dL (2.4-3.5); Glucose 113 mg/dL (83-110); Potassium 4.3 mmol/L (3.5-5.1); Sodium 138 mmol/L (136-145)
[2019-01-23 10:52] LABS: CKMB 2.5 ng/mL (0-6.6)
[2019-01-23 12:43] LABS: #Eosinphils 0.1 thou/uL (0.0-0.7); #Lymphocytes 0.9 thou/uL (1.20-3.40); #Monocytes 0.4 thou/uL (0.11-0.59); #Neutrophils 4.9 thou/uL (1.40-6.50); %Basophils 0.3 % (0.0-1.0); %Eosinophils 1.1 % (0.0-10.0); %Lymphocytes 14.5 % (21.0-51.0); %Monocytes 6.6 % (0.0-10.0); %Neutrophils 77.6 % (42.0-75.0); Hemoglobin 10.9 g/dL (14.0-18.0); Mean Corpuscular HGB CONC 32.6 g/dL (32.0-36.0); Mean Corpuscular Hemoglobin 31.5 pg (27.0-31.0); Mean Corpuscular Volume 96.7 fL (78.0-98.0); Mean Platelet Volume 7.4 fL (7.4-10.4); Platelet Count 156 thou/uL (130-400); RBC Distribution Width 13.5 % (11.5-14.5); Red Blood Cell (RBC) Count 3.45 mill/uL (4.70-6.10); White Blood Cell (WBC) Count 6.3 thou/uL (4.8-10.8)
== END 2019-01-23 13:54 | disposition home or self-care (01) ==
LOC: ERS 09:28
DX: R55 Syncope and collapse (principal); I11.0 Hypertensive heart disease with heart failure; I50.9 Heart failure, unspecified; E78.5 Hyperlipidemia, unspecified; G30.9 Alzheimer's disease, unspecified; Z79.82 Long term (current) use of aspirin; Z79.899 Other long term (current) drug therapy
CPT/HCPCS: 36415; 71045; 80053; 82553; 84484; 85025; 93005